=== PATIENT | female | born 1975 | race Caucasian/White ===

== ENCOUNTER 2017-10-06 10:16 | Day surgery (SDC) | payer OTHER ==
[~2017-10-06] VITALS: Ht 157.5 cm; Wt 106.1 kg
[~2017-10-06 10:16] MED LIST: FLEXERIL10 MG PO; LASIX20 MG PO; LEXAPRO20 MG PO; LORTAB 10-3251 EACH PO; MOTRIN800 MG PO; TAPAZOLE10 MG PO; TENORMIN25 MG PO; WOMEN'S DAILY1 EAC4 PO
[2017-10-06] MEDS ORDERED: BENADRYL ALLERG25 MG PO (10:34)
[2017-10-06 10:48] VITALS: BP 115/70
[2017-10-06 11:14] LABS: CHLORIDE 108 MEQ/L (99-109); POTASSIUM 3.7 MEQ/L (3.7-5.4); SODIUM 140 MEQ/L (136-147)
[2017-10-06 11:20] LABS: CREATININE 0.6 MG/DL (0.6-1.3); GFR ESTIMATE (CALCULATED) > 59 mL/min/; GLUCOSE 85 mg/dL (70-99); UREA NITROGEN (BUN) 10 mg/dL (9-23)
[2017-10-06 13:05] VITALS: BP 103/54
[2017-10-06 13:35] VITALS: BP 113/53
== END 2017-10-06 13:46 | disposition home or self-care (01) ==
LOC: SDC 10:16
PROVIDERS: Urology
DX: N13.2 Hydronephrosis with renal and ureteral calculous obstruction (principal); Z87.442 Personal history of urinary calculi; E66.01 Morbid (severe) obesity due to excess calories; Z68.41 Body mass index [BMI] 40.0-44.9, adult; I10 Essential (primary) hypertension; E03.9 Hypothyroidism, unspecified; F32.9 Major depressive disorder, single episode, unspecified; F41.9 Anxiety disorder, unspecified; F17.210 Nicotine dependence, cigarettes, uncomplicated; Z88.8 Allergy status to other drugs, medicaments and biological substances
CPT/HCPCS: 74420; 80048; C2625; J0690; J1100; J1885; J2250; J2405; J3010

== ENCOUNTER → 2018-02-25 | Outpatient (CLI) | payer OTHER ==
[~2018-02-25] MED LIST changes: +BENADRYL ALLERG25 MG PO; +CIPRO500 MG PO; +DOCUSATE SODIU100 MG PO; +ELAVIL10 MG PO; +ENDOCET 5-3251 EACH PO
[2018-02-25 09:24] LABS: HEMATOCRIT 38.6 % (36.0-46.0); HEMOGLOBIN 12.4 G/DL (11.9-15.5); MCH 27.8 PG (29.0-34.0); MCHC 32.1 G/DL (30.0-36.0); MCV 86.5 FL (83-99); PLATELET COUNT 258 K/uL (156-360); RBC DIS.WIDTH-CV 13.6 % (11.8-14.6); RBC DIS.WIDTH-SD 42.8 % (39-53); RED BLOOD COUNT 4.46 M/uL (3.80-5.20); WHITE BLOOD COUNT 11.9 K/uL (4.1-10.2)
[2018-02-25 09:36] LABS: PTT 34.1 SEC (25-37)
== END | disposition home or self-care (01) ==
LOC: OPR 08:44 → EDSTATUS 09:00
PROVIDERS: Urology
PROC: 0TJ5XZZ Inspection of Kidney, External Approach (ICD-10-PCS; principal; 2018-02-25)
DX: N20.0 Calculus of kidney (principal); Z53.09 Procedure and treatment not carried out because of other contraindication
CPT/HCPCS: 50433; 85027; 85610; 85730; 87086; C1766; C1769; C1894; J3010

== ENCOUNTER 2018-02-27 05:28 | Day surgery (SDC) | payer OTHER ==
[~2018-02-27] VITALS: Ht 157.5 cm; Wt 104.3 kg
[~2018-02-27 05:28] MED LIST changes: -CIPRO500 MG PO; -DOCUSATE SODIU100 MG PO; -ENDOCET 5-3251 EACH PO
[2018-02-27 06:06] VITALS: BP 109/57
[2018-02-27 12:56] VITALS: BP 117/70
[2018-02-27 14:03] LABS: HEMATOCRIT 37.4 % (36.0-46.0); MCH 27.8 PG (29.0-34.0); MCHC 32.1 G/DL (30.0-36.0); MCV 86.8 FL (83-99); PLATELET COUNT 225 K/uL (156-360); RBC DIS.WIDTH-CV 13.8 % (11.8-14.6); RBC DIS.WIDTH-SD 43.8 % (39-53); RED BLOOD COUNT 4.31 M/uL (3.80-5.20)
[2018-02-27 14:25] LABS: CHLORIDE 108 MEQ/L (99-109); CREATININE 0.7 MG/DL (0.6-1.3); GFR ESTIMATE (CALCULATED) > 59 mL/min/; GLUCOSE 137 mg/dL (70-99); POTASSIUM 3.3 MEQ/L (3.7-5.4); SODIUM 139 MEQ/L (136-147); UREA NITROGEN (BUN) 12 mg/dL (9-23)
[2018-02-27 15:36] VITALS: BP 107/57
[2018-02-27] MEDS ORDERED: CIPRO500 MG PO (18:18)
[2018-02-27] MEDS ORDERED: ENDOCET 5-3251 EACH PO (18:18)
[2018-02-27] MEDS ORDERED: DOCUSATE SODIU100 MG PO (18:18)
[2018-02-28 00:11] VITALS: BP 135/62
[2018-02-28 07:43] VITALS: BP 134/64
== END 2018-02-28 08:40 | disposition home or self-care (01) ==
LOC: SDC 05:28 → 2SOUTH 11:08 → 2EAST 11:08 → 2SOUTH 11:08 → ENRESERV 11:09 → SDC 11:24 → ENRESERV 11:27 → 2EAST 12:58 → SDC 15:33 → 2EAST 02-28 08:40
PROVIDERS: Urology
PROC: 0T778DZ Dilation of Left Ureter with Intraluminal Device, Via Natural or Artificial Opening Endoscopic (ICD-10-PCS; principal; 2018-02-27)
PROC: 0TC13ZZ Extirpation of Matter from Left Kidney, Percutaneous Approach (ICD-10-PCS; principal; 2018-02-27)
DX: N20.0 Calculus of kidney (principal)
CPT/HCPCS: 50432; 74018; 80048; 81025; 82365 90; 85027; 93005; C1726; C1758; C1769; C1894; C2625; G0378; J0131; J0330; J0690; J1100; J1170; J1580; J2250; J2405; J2765; J3010; J7050; J7120; S0020